=== PATIENT | female | born 1980 | race African-American/Black ===

== ENCOUNTER 2021-12-11 16:52 | Emergency (ER) | payer BC, MEDICAID, SELFPAY ==
[2021-12-11 17:02] VITALS: BP 134/88; PULSE 76; RESP 16; TEMP 36.7; O2SAT 99; BMI 32.5
[2021-12-11 17:05] VITALS: BP 120/95; PULSE 83; RESP 18; TEMP 36.5; O2SAT 100
--- NOTE | 2021-12-11 17:14 | XRR_ITS ---
PROCEDURE INFORMATION: Exam: XR Right Ankle Exam date and time: 12/11/2021 4:41 PM Age: 41 years old Clinical indication: Injury or trauma; Fall; Blunt trauma; Ankle; Right; Additional info: Fell and rolled ankle TECHNIQUE: Imaging protocol: XR Right ankle. Views: 3 or more views. COMPARISON: No relevant prior studies available. FINDINGS: Bones/joints: There is a mildly displaced oblique fracture through the lateral aspect of the base of the 5th metatarsal. Soft tissues: There is edema in the soft tissues. XR/XR ankle RT min 3V* [id number] IMPRESSION: 1. There is a mildly displaced oblique fracture through the lateral aspect of the base of the 5th metatarsal. 2. There is edema in the soft tissues.
--- NOTE | 2021-12-11 17:23 | XRR_ITS ---
PROCEDURE INFORMATION: Exam: XR Right Foot Exam date and time: 12/11/2021 4:41 PM Age: 41 years old Clinical indication: Injury or trauma; Fall; Blunt trauma; Foot; Right; Additional info: Injury with pain and swelling around lateral midfoot TECHNIQUE: Imaging protocol: XR Right foot. Views: 3 or more views. COMPARISON: No relevant prior studies available. FINDINGS: Bones/joints: There is a mildly displaced oblique fracture through the lateral aspect of the base of the 5th metatarsal. Hallux valgus. Soft tissues: There is edema in the soft tissues. XR/XR foot RT min 3V* [id number] IMPRESSION: There is a mildly displaced oblique fracture through the lateral aspect of the base of the 5th metatarsal.
--- NOTE | 2021-12-11 17:25 | W.ED.EXTPRO ---
HPI - Extremity Problem General: Chief complaint: Extremity Injury, Lower Stated complaint: Right foot injury Time Seen by Provider: 12/11/21 17:13 History of Present Illness: Patient is a 41-year-old female comes to the ED with right foot injury. Injury occurred just prior to arrival. Patient says she was walking off her porch steps and stepped on hose with right foot causing her to roll her ankle. She felt a pop. She endorses 9 out of 10 pain in her right foot and ankle with some swelling around her midfoot region. She has not taken anything for pain before coming to the ED. Associated symptoms: Deny chest pain, fever(s) or rash Review of Systems Const: Denies: fever(s), chills or fatigue Eyes: Denies: change in vision or eye discomfort ENMT: Denies: throat pain, odynophagia, nasal discharge or nasal congestion Card: Denies: chest pain, palpitations, edema, swelling of feet/ankles, dyspnea on exertion or orthopnea Resp: Denies: dyspnea, productive cough or non-productive cough GI: Denies: abdominal pain, nausea, vomiting, diarrhea, constipation or hematochezia : Denies: flank pain, dysuria or hematuria Musc: Reports: extremity pain (Right foot) and extremity swelling (Right foot); Denies: neck pain or back pain Skin/Breast: Denies: rash or new lesions Neuro: Denies: headache(s), numbness in extremities or weakness in extremities [facility] ED PFSH: Medical History No pertinent family history Surgical History No pertinent past surgical history Physical Exam Const: COMMON NORMALS: no acute distress, patient oriented x3 and alert GENERAL APPEARANCE: cooperative and comfortable HENMT: COMMON NORMALS: normocephalic HEAD & SCALP: normocephalic MOUTH: Normal oral and palatal mucosa present THROAT: posterior oropharynx normal and uvula midline Neck/C-Spine: COMMON NORMALS: supple GENERAL: Yes normal visual inspection Resp: COMMON NORMALS: normal respiratory effort, No retractions, No use of accessory muscles and clear to auscultation bilaterally AUSCULTATION: clear to auscultation bilaterally Cardio: COMMON NORMALS: regular rate, regular rhythm, S1 normal heart sound present, S2 normal heart sound present, No gallops present (Cardio), No clicks present (Cardio), No murmurs present (Cardio) and Peripheral pulses 2+ throughout RATE: regular rate RHYTHM: regular rhythm HEART SOUNDS: S1 normal heart sound present and S2 normal heart sound present PERIPHERAL PULSES: Peripheral pulses 2+ throughout GI: COMMON NORMALS: Normal to inspection, nondistended, normoactive bowel sounds present, Soft to palpation, non-tender and no masses PALPATION: Yes Soft to palpation : COMMON NORMALS: Yes no CVA tenderness BLADDER/KIDNEY EXAM: Yes no CVA tenderness Back/Pelvis: COMMON NORMALS: no CVA tenderness Extremity: NARRATIVE EXTREMITY EXAM: Right foot?midfoot swelling and ecchymosis noted. Tenderness over the lateral aspect of the midfoot. Neurovascular intact. Neuro: COMMON NORMALS: patient oriented x3 and moves all extremities SENSORIUM/ORIENTATION: Yes alert Skin: GENERAL SKIN EXAM: dry skin Course Vital Signs: Vital signs: Vital Signs Temperature 97.7 F 12/11/21 17:05 Pulse Rate 83 12/11/21 17:05 Respiratory Rate 18 12/11/21 17:05 Blood Pressure 120/95 12/11/21 17:05 Pulse Oximetry 100 12/11/21 17:05 MDM - Extremity (Nontraumatic) Medical Decision Making Patient is a 41-year-old female comes to the ED with right foot injury. She has some swelling and ecchymosis around the lateral midfoot region. Tenderness over lateral midfoot as well. Neurovascular tact. X-ray of right foot showed a mildly displaced oblique fracture through base of fifth metatarsal. Order was placed with case management for patient be referred to Dr. Gomez for follow-up. Patient was put in a short posterior leg splint and given some crutches. She was told to limit weightbearing and that case management will contact her in the next several days to set up an appointment with Dr. Gomez the emergency room clinician for further management of metatarsal fracture. Patient was discharged home with prescription for hydrocodone for pain. Return ED precautions given. Patient understood agree with plan. Lab Data Radiology Impressions Ankle X-Ray 12/11/21 17:14 IMPRESSION: 1. There is a mildly displaced oblique fracture through the lateral aspect of the base of the 5th metatarsal. 2. There is edema in the soft tissues. Foot X-Ray 12/11/21 17:23 IMPRESSION: There is a mildly displaced oblique fracture through the lateral aspect of the base of the 5th metatarsal. Discharge Plan Discharge Patient Disposition: Home Clinical Impression: Metatarsal bone fracture Qualifiers: Encounter type: initial encounter Metatarsal bone: fifth Fracture type: closed Fracture alignment: nondisplaced Laterality: right Qualified Code(s): S92.354A - Nondisplaced fracture of fifth metatarsal bone, right foot, initial encounter for closed fracture Condition: Stable Discharge Orders: Discharge ED (Routine); Ordered 12/11/21 Ordered By: Manuel Collins Referrals: Rocio Mckeon DO [Primary Care Provider] - Discharge Diet: Regular Discharge Activity: Use walker/crutches as instructed Patient Instructions: Fractures - Metatarsal, Foot Fracture in Adults (ED), Opioid Safety Activity Restrictions/Additional Instructions: Follow-up with medical provider as directed. Case management should be contacting you in the next several days to set up an appointment with Dr. Gomez the emergency room clinician for follow-up of foot fracture. Use crutches for ambulation and limit weightbearing until seen by Dr. Gomez. Take medications as prescribed. Return to the ER or your medical provider if condition worsens. Please read and understand discharge instructions. Thank you for choosing [facility] for your healthcare needs today. Please realize this is an emergency room and that we are providing you with a medical screening exam and this may not be complete and all inclusive of all the testing and or work up that you may need to determine your ailment or severity of your illness. It is very important that you follow up as instructed or that you return to the Emergency Department should you have concerns or if your condition changes or worsens in any way. 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
[2021-12-11] MEDS: HYDROcodone-acetaminophen 7.5-325 mg Tablet 1 TAB PO (17:35)
--- NOTE | 2021-12-12 10:41 | DCPLANNER ---
Addendum entered by Carlie Mcclure 01/11/22 15:30: Patient had a follow up appointment scheduled for 12.16.[address] Gomez at ortho - patient did attend appointment. Addendum entered by Carlie Mcclure 12/13/21 08:43: Patient has a follow up appointment scheduled for Thursday, December 16, 2021 at 2:[address] Gomez at ortho. Clinic will call patient with appointment information. Original Note: manager creative services had message to schedule a follow up appointment for patient with ortho. manager creative services called the ortho clinic, spoke with Xiomara, gave clinic patients information. manager creative services was told that patients information would be printed and reviewed. Clinic will call patient with appointment information.
== END 2021-12-11 18:47 | disposition home or self-care (01) ==
PROVIDERS: Emergency Provider Physician Assistant; PCP Family Medicine
DX: S92.354A Nondisplaced fracture of fifth metatarsal bone, right foot, initial encounter for closed fracture (principal); X50.1XXA Overexertion from prolonged static or awkward postures, initial encounter
CPT/HCPCS: 29515; 73610; 73630; 99283; E0114

== ENCOUNTER 2021-12-16 14:25 | Outpatient (CLI) | payer BC, MEDICAID, SELFPAY | END 2021-12-16 14:26 | disposition home or self-care (01) | LOC: SPT 14:26 | PROVIDERS: PCP Family Medicine; Visit Provider Podiatrist Foot & Ankle Surgery | DX: Z46.89 Encounter for fitting and adjustment of other specified devices (principal); S92.30 Fracture of unspecified metatarsal bone(s); X58.XXXD Exposure to other specified factors, subsequent encounter | CPT/HCPCS: 97760; L4361 ==

== ENCOUNTER → 2021-12-30 12:54 | Outpatient (BNVA) | payer BC, MEDICAID, SELFPAY | PROVIDERS: PCP Family Medicine; Visit Provider Podiatrist Foot & Ankle Surgery | DX: S92.354D Nondisplaced fracture of fifth metatarsal bone, right foot, subsequent encounter for fracture with routine healing (principal); X58.XXXD Exposure to other specified factors, subsequent encounter | CPT/HCPCS: 73630; 99214 ==

== ENCOUNTER → 2022-01-23 11:33 | Outpatient (BNVA) | payer BC, MEDICAID, SELFPAY | PROVIDERS: PCP Family Medicine; Visit Provider Podiatrist Foot & Ankle Surgery | DX: S92.354D Nondisplaced fracture of fifth metatarsal bone, right foot, subsequent encounter for fracture with routine healing (principal); W10.9XXA Fall (on) (from) unspecified stairs and steps, initial encounter; F17.210 Nicotine dependence, cigarettes, uncomplicated | CPT/HCPCS: 73630; 99213; 99214 ==

== ENCOUNTER → 2022-03-08 14:00 | Outpatient (BNVA) | payer BC, MEDICAID, SELFPAY | PROVIDERS: PCP Family Medicine; Visit Provider Podiatrist Foot & Ankle Surgery | DX: S92.354D Nondisplaced fracture of fifth metatarsal bone, right foot, subsequent encounter for fracture with routine healing (principal); W22.8XXD Striking against or struck by other objects, subsequent encounter | CPT/HCPCS: 73630; 99213; 99214 ==

== ENCOUNTER 2022-05-18 23:58 | Emergency (ER) | payer BC, MEDICAID, SELFPAY ==
--- NOTE | 2022-05-18 00:15 | ECG_ITS ---
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 Measurements Intervals [place] Rate: 81 P: 74 CT: 144 QRS: 79 QRSD: 92 T: 50 QT: 389 QTc: 454 Interpretive Statements SINUS RHYTHM Compared to ECG 04/11/2017 23:28:[address] interval no longer present Electronically Signed On 05-20-2022 9:26:47 CDT by Malvin Dao M.D. [email or web address]cho[facility] health centerCrowd Technologiesparkview [email or web address]/store/[id number]
[2022-05-19] VITALS: BP 119/74; PULSE 88; RESP 18; TEMP 36.5; O2SAT 97; BMI 36.7
[2022-05-19 00:04] VITALS: BP 120/80; PULSE 86; RESP 20; O2SAT 99
--- NOTE | 2022-05-19 00:08 | W.ED.ABDPA2 ---
HPI - Abdominal Pain General: Chief Complaint: Abdominal Pain Stated Complaint: abd pain Time Seen by Provider: 05/19/22 00:08 History of Present Illness: 42-year-old female comes in today with epigastric pain. Patient reports pain on and off for the last 2 to 3 months. Patient reports that the pain was worse tonight. Patient denies any nausea vomiting or fever. Patient reports no chest discomfort. Patient continues to have her gallbladder. Patient reports that her mother had her gallbladder out about 42 years of age. Patient denies any chronic medical conditions or abdominal surgeries. Patient takes no routine medications. Associated Symptoms: Reports nausea; Denies fever(s) Review of Systems Const: Denies: fever(s) Card: Denies: chest pain Resp: Denies: dyspnea GI: Reports: abdominal pain and nausea [facility] ED PFSH: Medical History No pertinent family history Surgical History No pertinent past surgical history Social History Smoking and tobacco status: current every day smoker Physical Exam Const: COMMON NORMALS: alert HENMT: COMMON NORMALS: normocephalic HEAD & SCALP: normocephalic Resp: COMMON NORMALS: normal respiratory effort and clear to auscultation bilaterally AUSCULTATION: clear to auscultation bilaterally Cardio: COMMON NORMALS: regular rate and regular rhythm RATE: regular rate RHYTHM: regular rhythm GI: COMMON NORMALS: Soft to palpation AUSCULTATION: Yes normoactive bowel sounds PALPATION: Yes Soft to palpation and Yes Tenderness to palpation present (GI) (Midepigastric) Extremity: COMMON NORMALS: normal to inspection Neuro: SENSORIUM/ORIENTATION: Yes alert Skin: COMMON NORMALS: no rashes or lesions noted GENERAL SKIN EXAM: no rashes or lesions noted Course ED course: 1248, patient reported decrease in her abdominal pain with relief after GI cocktail. Vital Signs: Vital signs: Vital Signs Temperature 97.7 F 05/19/22 00:00 Pulse Rate 84 05/19/22 00:34 Respiratory Rate 23 H 05/19/22 00:34 Blood Pressure 120/68 05/19/22 00:34 Pulse Oximetry 97 05/19/22 00:34 Oxygen Delivery Me thod 05/19/22 00:00 MDM - Abdominal Pain Medical Decision Making 42-year-old female comes in today with epigastric pain. On exam patient has some discomfort to the mid epigastrium. Abdomen soft. No CVA tenderness. Negative McBurney's negative Dobbs's. Differential diagnosis includes GERD, pancreatitis, cholecystitis. Laboratory values were unremarkable. Patient had relief with a GI cocktail. Recommend treatment for GERD with pantoprazole 40 mg daily for the next 90 days. Recommend follow-up with primary care for persistent or worsening symptoms return to the ER. Lab Data : 05/19/22 00:15 05/19/22 00:15 Labs/Radiology: Laboratory Results WBC 8.7 10^3/uL (4.0-10.0) 05/19/22 00:15 RBC 4.84 10^6/uL (4.1-5.3) 05/19/22 00:15 Hgb 13.1 g/dL (11.5-15.3) 05/19/22 00:15 Hct 41.9 % (37.0-47.0) 05/19/22 00:15 MCV 86.6 fl (81-99) 05/19/22 00:15 MCH 27.1 pg (28.0-34.0) L 05/19/22 00:15 MCHC 31.3 g/dL (30.0-36.0) 05/19/22 00:15 RDW 14.6 % (12.1-15.1) 05/19/22 00:15 Plt Count 271 10^3/cmm (130-400) 05/19/22 00:15 MPV 11.0 fL (7.4-10.4) H 05/19/22 00:15 Neut % (Auto) 60.8 % 05/19/22 00:15 Lymph % (Auto) 31.0 % 05/19/22 00:15 Lawrence % (Auto) 5.0 % 05/19/22 00:15 Eos % (Auto) 2.7 % 05/19/22 00:15 Baso % (Auto) 0.3 % 05/19/22 00:15 Neut # (Auto) 5.30 10^3/uL (1.8-7.7) 05/19/22 00:15 Lymph # (Auto) 2.7 10^3/uL (0.8-4.8) 05/19/22 00:15 Lawrence # (Auto) 0.4 10^3/uL (0.2-0.9) 05/19/22 00:15 Eos # (Auto) 0.2 10^3/uL (0.0-0.8) 05/19/22 00:15 Baso # (Auto) 0.0 10^3/uL (0.0-0.1) 05/19/22 00:15 Nucleated RBC % (auto) 0 % 05/19/22 00:15 Nucleated RBCs # 0.0 /100WBC 05/19/22 00:15 Sodium 140 mmol/L (136-145) 05/19/22 00:15 Potassium 3.6 mmol/L (3.5-5.1) 05/19/22 00:15 Chloride 104 mmol/L (98-107) 05/19/22 00:15 Carbon Dioxide 24 mmol/L (22-29) 05/19/22 00:15 Anion Gap 15.6 (5-19) 05/19/22 00:15 BUN 11 mg/dL (6-20) 05/19/22 00:15 Creatinine 0.7 mg/dL (0.5-0.9) 05/19/22 00:15 GFR Calculation 111.6 mL/min (90-130) 05/19/22 00:15 Glucose 150 mg/dL (65-115) H 05/19/22 00:15 Calculated Osmolality 292 mOsm/kg (285-295) 05/19/22 00:15 Calcium 9.2 mg/dL (8.5-10.5) 05/19/22 00:15 Total Bilirubin 0.2 mg/dL (0.15-1.2) 05/19/22 00:15 AST 52 U/L (0-32) H 05/19/22 00:15 ALT 28 U/L (0-33) 05/19/22 00:15 Alkaline Phosphatase 125 U/L (35-105) H 05/19/22 00:15 Total Protein 7.1 g/dL (6.6-8.7) 05/19/22 00:15 Albumin 4.2 g/dL (3.5-5.2) 05/19/22 00:15 Globulin 2.9 g/dL (1.3-4.6) 05/19/22 00:15 Lipase 53 U/L (13-60) 05/19/22 00:15 EKG Data EKG 1: EKG interpretation date: 05/19/22 EKG interpretation time: 00:15 Prior EKG tracings: not available for review Interpretation: EKG shows a sinus rhythm with regular rate at [address] elevation or ectopy is noted. No prior exam was available for comparison. Discharge Plan Discharge Patient Disposition: Home Clinical Impression: GERD (gastroesophageal reflux disease) Qualifiers: Esophagitis presence: esophagitis presence not specified Qualified Code(s): K21.9 - Gastro-esophageal reflux disease without esophagitis Condition: Stable Prescriptions: New pantoprazole 40 mg tablet,delayed release (DR/EC) 40 mg PO DAILY Qty: 30 2RF No Action hydrocodone-acetaminophen 5-325 mg tablet PO (DME) cam boot See Rx Instructions .Route .MEDSUPPLY Qty: 1 0RF Rx Instructions: As directed hydrocodone-acetaminophen 5-325 mg tablet 1 tab PO Q6H PRN (Reason: pain) 7 Days Qty: 28 0RF hydrocodone-acetaminophen 5-325 mg tablet 1 tab PO Q6H PRN (Reason: pain) 7 Days Qty: 20 0RF Discharge Orders: Discharge ED (Routine); Ordered 05/19/22 Ordered By: Diony Lassiter Referrals: Rocio Mckeon DO [Primary Care Provider] - Discharge Diet: As Directed Discharge Activity: Increase activity as tolerated Patient Instructions: Diet for Stomach Ulcers and Gastritis (ED), GERD (Gastroesophageal Reflux Disease) (ED) Activity Restrictions/Additional Instructions: Smoking cessation can decrease stomach acid production and reflux. Avoid eating 2 hours before bedtime because lying down too early after eating may cause acid to go up into the esophagus. Carbonated beverages often relax the sphincter muscle of the lower esophagus causing acid to go up into the higher part of the esophagus causing more pain. Some foods may also causes for laxation of the sphincter muscle causing more discomfort such as chocolate, caffeine, onions. Not everybody reacts the same way with these foods but you may find this helpful. It is recommended to use pantoprazole or other similar medications for up to 90 days to allow for the healing of the esophagus and stomach tissue. It is important to take this medication 30 minutes before your first meal of the day. Follow-up with primary care for further evaluation and treatment. Return to ER for new concerns such as high fever, uncontrolled pain, or blood in vomit or stool. 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
[2022-05-19] MEDS: lidocaine 2% viscous 15 ML, aluminum-mag hydrox-simethicon 30 ML, sucralfate oral liq 1 GM PO (00:18)
[2022-05-19 00:31] LABS: Basophils % 0.3 %; Eosinophils # 0.2 10^3/uL (0.0-0.8); Eosinophils % 2.7 %; Hematocrit 41.9 % (37.0-47.0); Hemoglobin 13.1 g/dL (11.5-15.3); Lymphocytes # 2.7 10^3/uL (0.8-4.8); Mean Corpuscular HGB Conc 31.3 g/dL (30.0-36.0); Mean Corpuscular Hemoglobin 27.1 pg (28.0-34.0); Mean Corpuscular Volume 86.6 fl (81-99); Monocytes # 0.4 10^3/uL (0.2-0.9); Neutrophils % 60.8 %; Nucleated Red Blood Cells % 0 %; Platelet Count 271 10^3/cmm (130-400); Red Blood Count 4.84 10^6/uL (4.1-5.3); Red Cell Distribution Width 14.6 % (12.1-15.1); White Blood Count 8.7 10^3/uL (4.0-10.0)
[2022-05-19 00:34] VITALS: BP 120/68; PULSE 84; RESP 23; O2SAT 97
[2022-05-19 00:48] LABS: Alanine Aminotransferase 28 U/L (0-33); Albumin Level 4.2 g/dL (3.5-5.2); Alkaline Phosphatase 125 U/L (35-105); Anion Gap 15.6 (5-19); Aspartate Amino Transferase 52 U/L (0-32); Blood Urea Nitrogen 11 mg/dL (6-20); Calcium 9.2 mg/dL (8.5-10.5); Carbon Dioxide 24 mmol/L (22-29); Chloride 104 mmol/L (98-107); Globulin 2.9 g/dL (1.3-4.6); Glomerular Filtration Rate 111.6 mL/min (90-130); Glucose 150 mg/dL (65-115); Lipase 53 U/L (13-60); Osmolality Calculated 292 mOsm/kg (285-295); Potassium 3.6 mmol/L (3.5-5.1); Sodium 140 mmol/L (136-145); Total Bilirubin 0.2 mg/dL (0.15-1.2); Total Protein 7.1 g/dL (6.6-8.7)
[2022-05-19] MEDS: pantoprazole 40 mg SDV IVP (00:53)
[2022-05-19 01:02] VITALS: BP 119/67; PULSE 89; RESP 18; O2SAT 95
== END 2022-05-19 01:05 | disposition home or self-care (01) ==
PROVIDERS: Emergency Provider Nurse Practitioner Family; PCP Family Medicine
DX: K21.9 Gastro-esophageal reflux disease without esophagitis (principal)
CPT/HCPCS: 80053; 83690; 85025; 93005; 96374; 99284; C9113

== ENCOUNTER 2022-10-09 09:50 | Emergency (ER) | payer BC, MEDICAID, SELFPAY ==
[2022-10-09 10:02] VITALS: BP 132/87; PULSE 71; RESP 16; TEMP 36.6; O2SAT 99; BMI 36.0
--- NOTE | 2022-10-09 10:07 | W.ED.CHESTPA ---
HPI - Chest Pain General: Chief Complaint: Chest Pain Stated Complaint: Chest Pain Time Seen by Provider: 10/09/22 10:01 [facility] ED PFSH: Medical History No pertinent family history Surgical History No pertinent past surgical history Social History Smoking and tobacco status: current every day smoker Course Vital Signs: Vital signs: Vital Signs Temperature 97.8 F 10/09/22 10:02 Pulse Rate 71 10/09/22 10:02 Respiratory Rate 16 10/09/22 10:02 Blood Pressure 132/87 10/09/22 10:02 Pulse Oximetry 99 10/09/22 10:02 Oxygen Delivery Me thod 10/09/22 10:02 Discharge Plan Discharge Condition: Stable Prescriptions: No Action hydrocodone-acetaminophen 5-325 mg tablet PO (DME) cam boot See Rx Instructions .Route .MEDSUPPLY Qty: 1 0RF Rx Instructions: As directed hydrocodone-acetaminophen 5-325 mg tablet 1 tab PO Q6H PRN (Reason: pain) 7 Days Qty: 28 0RF hydrocodone-acetaminophen 5-325 mg tablet 1 tab PO Q6H PRN (Reason: pain) 7 Days Qty: 20 0RF pantoprazole 40 mg tablet,delayed release (DR/EC) 40 mg PO DAILY Qty: 30 2RF Referrals: Rocio Mckeon DO [Primary Care Provider] - Coding Level of Care Code 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
--- NOTE | 2022-10-09 10:12 | XR_ITS ---
WS: [id number] Portable AP upright chest, 10/09/2022 Clinical Data: chest pain Comparison: Two-view chest, 04/20/2009. Findings: No nodules, masses or effusions are seen. The heart is normal. The pulmonary vascularity is not increased. No pneumonia or pneumothorax is seen. XR/XR chest 1V portable [id number] Impression: Negative chest.
--- NOTE | 2022-10-09 10:12 | ECG_ITS ---
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 Measurements Intervals [place] Rate: 66 P: 65 RI: 140 QRS: 68 QRSD: 84 T: 49 QT: 388 QTc: 409 Interpretive Statements SINUS RHYTHM Compared to ECG 05/19/2022 00:10:03 No significant changes Electronically Signed On 10-09-2022 10:33:17 WOOD FINISHER APPRENTICE by Juan Manuel Oliveros M.D. [email or web address] [email or web address] Data Center Solutionsst[email or web address]/store/[id number]
--- NOTE | 2022-10-09 10:17 | US_ITS ---
WS: [id number] RIGHT UPPER QUADRANT ULTRASOUND HISTORY: RUQ pain COMPARISON: None available. Liver: 16.0 cm in length. Normal size liver. No bile duct dilatation or mass. Portal Vein: Normal hepatopetal flow with monophasic waveform. Gallbladder: Normally distended gallbladder. There is a large stone measuring 2.2 x 1.6 cm near the g allbladder neck. No adjacent inflammation. CBD: 0.3 cm Pancreas: Normal size and echogenicity. Right kidney: 10.8 cm in length. Normal size and echogenicity. No hydronephrosis or mass. Aorta and IVC: Unremarkable abdominal aorta and IVC. No ascites. US/US gall bladder [id number] IMPRESSION: 1. Cholelithiasis without evidence for acute cholecystitis at this time. 2. No bile duct dilatation.
--- NOTE | 2022-10-09 10:18 | W.ED.ABDPA2 ---
Documented by User: ADITHYA Paige 10/09/22 11:32 HPI - Abdominal Pain General: Chief Complaint: Chest Pain Stated Complaint: Chest Pain Time Seen by Provider: 10/09/22 10:01 Source: patient Mode of arrival: ambulatory Limitations: no limitations History of Present Illness: Patient is a 42-year-old female with no known past medical history here for complaints of epigastric pain that began at roughly 5 AM this morning when it awoke her from sleep. She feels like pain is radiating into the left upper/left side of her chest. Pain has been constant since onset. Patient states she had one previous episode a few months ago that went away on its own after 30 minutes or so. She was told this was secondary to indigestion however patient questions this diagnosis. Patient denies nausea, vomiting, diarrhea. She does not complain of shortness of breath or difficulty breathing. No lightheadedness or palpitations. MD elicited complaint: abdominal pain Pertinent past history: none Onset (ago): hour(s) Pain Consistency: constant Location: Epigastric Severity: moderate Quality: sharp Radiation: LUQ Migration to: no migration Exacerbating factors: movement and other (lying down, sitting forward) Relieving factors: other (curling into a ball and putting pressure on it ) Associated Symptoms: Reports no associated symptoms; Denies change in bowel habits, chills, diarrhea, dysuria, fever(s), nausea, syncope and vomiting Review of Systems Const: Denies: fever(s), chills, body aches, fatigue or malaise Card: Reports: chest pain; Denies: palpitations, irregular heart rhythm, edema, swelling of feet/ankles, lightheadedness, syncope, pre-syncope, dyspnea on exertion or orthopnea Resp: Denies: dyspnea, productive cough, non-productive cough, wheezing, hemoptysis or chest congestion GI: Reports: abdominal pain; Denies: nausea, vomiting, diarrhea or change in bowel habits : Denies: flank pain or dysuria Musc: Denies: neck pain, back pain, extremity pain or joint pain Skin/Breast: Denies: rash Neuro: Denies: headache(s), numbness in extremities, weakness in extremities, sensory changes or dizziness PFS ED PFSH: Medical History (Updated 10/17/22 @ 10:53 by Ruben Abreu DO) No pertinent family history Symptomatic cholelithiasis Surgical History History of 2 No pertinent past surgical history Social History Smoking and tobacco status: current every day smoker Physical Exam Const: COMMON NORMALS: no acute distress, patient oriented x3, no limitations and alert GENERAL APPEARANCE: cooperative NUTRITIONAL APPEARANCE: obese ORIENTATION/CONSCIOUSNESS: Yes awake, Yes oriented to person, Yes oriented to place and Yes oriented to time HENMT: COMMON NORMALS: normocephalic and atraumatic HEAD & SCALP: normocephalic and atraumatic Chest: COMMONS NORMALS: normal inspection of the chest and normal palpation of entire chest wall Resp: COMMON NORMALS: normal respiratory effort and clear to auscultation bilaterally AUSCULTATION: clear to auscultation bilaterally Cardio: COMMON NORMALS: regular rate and regular rhythm RATE: regular rate RHYTHM: regular rhythm GI: COMMON NORMALS: Normal to inspection, nondistended, normoactive bowel sounds present, Soft to palpation, No hepatosplenomegaly present and no masses INSPECTION: Yes normal to inspection AUSCULTATION: Yes normoactive bowel sounds PALPATION: Yes Soft to palpation, Yes Tenderness to palpation present (GI) (max tendernes to RUQ; tenderness to epigastric and LUQ), No Guarding due to palpation present (GI), No Rigid due to palpation and Yes No hepatosplenomegaly present : COMMON NORMALS: Yes no CVA tenderness BLADDER/KIDNEY EXAM: Yes no CVA tenderness Back/Pelvis: COMMON NORMALS: no CVA tenderness Extremity: COMMON NORMALS: normal to inspection GENERAL: Yes normal exam except as noted Neuro: ALEX COMA SCALE: document GCS findings Alex coma scale eye opening: Spontaneous Alex coma scale verbal response: Orientated [place] coma scale motor response: Obey commands Alex coma scale total score: 15 COMMON NORMALS: patient oriented x3 SENSORIUM/ORIENTATION: Yes alert, Yes oriented to person, Yes oriented to place and Yes oriented to time Skin: COMMON NORMALS: no rashes or lesions noted GENERAL SKIN EXAM: no rashes or lesions noted Course Vital Signs: Vital signs: Vital Signs Temperature 97.8 F 10/09/22 11:34 Pulse Rate 68 10/09/22 11:34 Respiratory Rate 17 10/09/22 11:34 Blood Pressure 121/80 10/09/22 11:34 Pulse Oximetry 99 10/09/22 11:34 Oxygen Delivery Me thod 10/09/22 10:43 MDM - Abdominal Pain Medical Decision Making Patient here with right upper quadrant and epigastric pain. Upon re-assessment pain has improved. Patient's vital signs are stable. She has a normal white count. Remainder of labs including her LFTs are normal. Gallbladder ultrasound showing cholelithiasis without evidence for acute cholecystitis. She did have a gallstone near the neck of her gallbladder. This most likely is the culprit of patient's symptoms. She will be placed on pain and nausea medications and case management will get her set up with general surgery for evaluation for elective cholecystectomy. Strict return ED precautions given. Lab Data 10/09/22 10:15 10/09/22 10:15 Labs/Radiology: Radiology Impressions Chest X-Ray 10/09/22 10:12 Impression: Negative chest. Gallbladder Ultrasound 10/09/22 10:17 IMPRESSION: 1. Cholelithiasis without evidence for acute cholecystitis at this time. 2. No bile duct dilatation. Laboratory Results WBC 9.0 10^3/uL (4.0-10.0) 10/09/22 10:15 RBC 4.92 10^6/uL (4.1-5.3) 10/09/22 10:15 Hgb 12.9 g/dL (11.5-15.3) 10/09/22 10:15 Hct 41.4 % (37.0-47.0) 10/09/22 10:15 MCV 84.1 fl (81-99) 10/09/22 10:15 MCH 26.2 pg (28.0-34.0) L 10/09/22 10:15 MCHC 31.2 g/dL (30.0-36.0) 10/09/22 10:15 RDW 15.4 % (12.1-15.1) H 10/09/22 10:15 Plt Count 241 10^3/cmm (130-400) 10/09/22 10:15 MPV 10.6 fL (7.4-10.4) H 10/09/22 10:15 Neut % (Auto) 73.7 % 10/09/22 10:15 Lymph % (Auto) 20.2 % 10/09/22 10:15 [place] % (Auto) 4.3 % 10/09/22 10:15 Eos % (Auto) 1.3 % 10/09/22 10:15 Baso % (Auto) 0.3 % 10/09/22 10:15 Neut # (Auto) 6.65 10^3/uL (1.8-7.7) 10/09/22 10:15 Lymph # (Auto) 1.8 10^3/uL (0.8-4.8) 10/09/22 10:15 [place] # (Auto) 0.4 10^3/uL (0.2-0.9) 10/09/22 10:15 Eos # (Auto) 0.1 10^3/uL (0.0-0.8) 10/09/22 10:15 Baso # (Auto) 0.0 10^3/uL (0.0-0.1) 10/09/22 10:15 Nucleated RBC % (auto) 0 % 10/09/22 10:15 Nucleated RBCs # 0.0 /100WBC 10/09/22 10:15 Sodium 135 mmol/L (136-145) L 10/09/22 10:15 Potassium 4.3 mmol/L (3.5-5.1) 10/09/22 10:15 Chloride 102 mmol/L (98-107) 10/09/22 10:15 Carbon Dioxide 24 mmol/L (22-29) 10/09/22 10:15 Anion Gap 13.3 (5-19) 10/09/22 10:15 BUN 12 mg/dL (6-20) 10/09/22 10:15 Creatinine 0.7 mg/dL (0.5-0.9) 10/09/22 10:15 GFR Calculation 111.6 mL/min (90-130) 10/09/22 10:15 Glucose 118 mg/dL (65-115) H 10/09/22 10:15 Calculated Osmolality 281 mOsm/kg (285-295) L 10/09/22 10:15 Calcium 9.4 mg/dL (8.5-10.5) 10/09/22 10:15 Total Bilirubin 0.2 mg/dL (0.15-1.2) 10/09/22 10:15 AST 15 U/L (0-32) 10/09/22 10:15 ALT 17 U/L (0-33) 10/09/22 10:15 Alkaline Phosphatase 90 U/L (35-105) 10/09/22 10:15 Troponin T Baseline 6 ng/L (0-10) 10/09/22 10:15 Total Protein 7.4 g/dL (6.6-8.7) 10/09/22 10:15 Albumin 4.1 g/dL (3.5-5.2) 10/09/22 10:15 Globulin 3.3 g/dL (1.3-4.6) 10/09/22 10:15 Lipase 41 U/L (13-60) 10/09/22 10:15 Discharge Plan Discharge Patient Disposition: Home Clinical Impression: Cholelithiasis Condition: Stable Prescriptions: New hydrocodone-acetaminophen 5-325 mg tablet 1 tab PO Q6H PRN (Reason: pain) Qty: 14 0RF ondansetron 4 mg tablet,disintegrating 4 mg PO Q8H PRN (Reason: nausea and vomiting) Qty: 14 0RF Discharge Orders: Discharge ED (Routine); Ordered 10/09/22 Ordered By: Zonia Overton Referrals: Rocio Mckeon DO [Primary Care Provider] - Patient Instructions: Cholelithiasis, Gallstones (ED), Opioid Safety, Pain Management Activity Restrictions/Additional Instructions: As we discussed case management will get you set up with general surgery for evaluation of your pain and gallstones. You need to return to the emergency department for worsening or uncontrollable pain, repetitive episodes of vomiting, fevers, yellowing of your skin or eyes, or any other concerns you may have. Coding Level of Care Code ED Orthophotography Technician for [facility]g F[facility] Exam Comprehensive Documented by User: Meño Lopes DO 10/19/22 06:12 HPI - Abdominal Pain General: Chief Complaint: Chest Pain Stated Complaint: Chest Pain Time Seen by Provider: 10/09/22 10:01 [facility] ED PFS: Medical History (Updated 10/17/22 @ 10:53 by Ruben Abreu DO) No pertinent family history Symptomatic cholelithiasis Surgical History History of 2 No pertinent past surgical history Social History Smoking and tobacco status: current every day smoker Physical Exam Neuro: ALEX COMA SCALE: document GCS findings Alex coma scale total score: 15 Course Vital Signs: Vital signs: Vital Signs Temperature 97.8 F 10/09/22 11:34 Pulse Rate 68 10/09/22 11:34 Respiratory Rate 17 10/09/22 11:34 Blood Pressure 121/80 10/09/22 11:34 Pulse Oximetry 99 10/09/22 11:34 Oxygen Delivery Me thod 10/09/22 10:43 MDM - Abdominal Pain Medical Decision Making Patient here with right upper quadrant and epigastric pain. Upon re-assessment pain has improved. Patient's vital signs are stable. She has a normal white count. Remainder of labs including her LFTs are normal. Gallbladder ultrasound showing cholelithiasis without evidence for acute cholecystitis. She did have a gallstone near the neck of her gallbladder. This most likely is the culprit of patient's symptoms. She will be placed on pain and nausea medications and case management will get her set up with general surgery for evaluation for elective cholecystectomy. Strict return ED precautions given. Chart reviewed and patient discussed with midlevel. Agree with assessment and plan. Lab Data 10/09/22 10:15 10/09/22 10:15 Labs/Radiology: Radiology Impressions Chest X-Ray 10/09/22 10:12 Impression: Negative chest. Gallbladder Ultrasound 10/09/22 10:17 IMPRESSION: 1. Cholelithiasis without evidence for acute cholecystitis at this time. 2. No bile duct dilatation. Laboratory Results WBC 9.0 10^3/uL (4.0-10.0) 10/09/22 10:15 RBC 4.92 10^6/uL (4.1-5.3) 10/09/22 10:15 Hgb 12.9 g/dL (11.5-15.3) 10/09/22 10:15 Hct 41.4 % (37.0-47.0) 10/09/22 10:15 MCV 84.1 fl (81-99) 10/09/22 10:15 MCH 26.2 pg (28.0-34.0) L 10/09/22 10:15 MCHC 31.2 g/dL (30.0-36.0) 10/09/22 10:15 RDW 15.4 % (12.1-15.1) H 10/09/22 10:15 Plt Count 241 10^3/cmm (130-400) 10/09/22 10:15 MPV 10.6 fL (7.4-10.4) H 10/09/22 10:15 Neut % (Auto) 73.7 % 10/09/22 10:15 Lymph % (Auto) 20.2 % 10/09/22 10:15 [place] % (Auto) 4.3 % 10/09/22 10:15 Eos % (Auto) 1.3 % 10/09/22 10:15 Baso % (Auto) 0.3 % 10/09/22 10:15 Neut # (Auto) 6.65 10^3/uL (1.8-7.7) 10/09/22 10:15 Lymph # (Auto) 1.8 10^3/uL (0.8-4.8) 10/09/22 10:15 [place] # (Auto) 0.4 10^3/uL (0.2-0.9) 10/09/22 10:15 Eos # (Auto) 0.1 10^3/uL (0.0-0.8) 10/09/22 10:15 Baso # (Auto) 0.0 10^3/uL (0.0-0.1) 10/09/22 10:15 Nucleated RBC % (auto) 0 % 10/09/22 10:15 Nucleated RBCs # 0.0 /100WBC 10/09/22 10:15 Sodium 135 mmol/L (136-145) L 10/09/22 10:15 Potassium 4.3 mmol/L (3.5-5.1) 10/09/22 10:15 Chloride 102 mmol/L (98-107) 10/09/22 10:15 Carbon Dioxide 24 mmol/L (22-29) 10/09/22 10:15 Anion Gap 13.3 (5-19) 10/09/22 10:15 BUN 12 mg/dL (6-20) 10/09/22 10:15 Creatinine 0.7 mg/dL (0.5-0.9) 10/09/22 10:15 GFR Calculation 111.6 mL/min (90-130) 10/09/22 10:15 Glucose 118 mg/dL (65-115) H 10/09/22 10:15 Calculated Osmolality 281 mOsm/kg (285-295) L 10/09/22 10:15 Calcium 9.4 mg/dL (8.5-10.5) 10/09/22 10:15 Total Bilirubin 0.2 mg/dL (0.15-1.2) 10/09/22 10:15 AST 15 U/L (0-32) 10/09/22 10:15 ALT 17 U/L (0-33) 10/09/22 10:15 Alkaline Phosphatase 90 U/L (35-105) 10/09/22 10:15 Troponin T Baseline 6 ng/L (0-10) 10/09/22 10:15 Total Protein 7.4 g/dL (6.6-8.7) 10/09/22 10:15 Albumin 4.1 g/dL (3.5-5.2) 10/09/22 10:15 Globulin 3.3 g/dL (1.3-4.6) 10/09/22 10:15 Lipase 41 U/L (13-60) 10/09/22 10:15 Discharge Plan Discharge Patient Disposition: Home Clinical Impression: Cholelithiasis Condition: Stable Prescriptions: New hydrocodone-acetaminophen 5-325 mg tablet 1 tab PO Q6H PRN (Reason: pain) Qty: 14 0RF ondansetron 4 mg tablet,disintegrating 4 mg PO Q8H PRN (Reason: nausea and vomiting) Qty: 14 0RF Discharge Orders: Discharge ED (Routine); Ordered 10/09/22 Ordered By: Zonia Overton Referrals: Rocio Mckeon DO [Primary Care Provider] - Patient Instructions: Cholelithiasis, Gallstones (ED), Opioid Safety, Pain Management Activity Restrictions/Additional Instructions: As we discussed case management will get you set up with general surgery for evaluation of your pain and gallstones. You need to return to the emergency department for worsening or uncontrollable pain, repetitive episodes of vomiting, fevers, yellowing of your skin or eyes, or any other concerns you may have. Coding Level of Care Code ED Orthophotography Technician for [place] Exam Comprehensive
[2022-10-09] MEDS: lidocaine 2% viscous 15 ML, aluminum-mag hydrox-simethicon 30 ML, sucralfate oral liq 1 GM PO (10:25)
[2022-10-09 10:43] VITALS: BP 132/87; PULSE 71; RESP 16; TEMP 36.6; O2SAT 99
[2022-10-09 10:44] LABS: Basophils % 0.3 %; Eosinophils # 0.1 10^3/uL (0.0-0.8); Eosinophils % 1.3 %; Hematocrit 41.4 % (37.0-47.0); Hemoglobin 12.9 g/dL (11.5-15.3); Lymphocytes # 1.8 10^3/uL (0.8-4.8); Lymphocytes % 20.2 %; Mean Corpuscular HGB Conc 31.2 g/dL (30.0-36.0); Mean Corpuscular Hemoglobin 26.2 pg (28.0-34.0); Mean Corpuscular Volume 84.1 fl (81-99); Mean Platelet Volume 10.6 fL (7.4-10.4); Monocytes # 0.4 10^3/uL (0.2-0.9); Monocytes % 4.3 %; Neutrophils # 6.65 10^3/uL (1.8-7.7); Neutrophils % 73.7 %; Nucleated Red Blood Cells % 0 %; Platelet Count 241 10^3/cmm (130-400); Red Blood Count 4.92 10^6/uL (4.1-5.3); Red Cell Distribution Width 15.4 % (12.1-15.1)
[2022-10-09 11:07] LABS: Troponin(5th) Baseline 6 ng/L (0-10)
[2022-10-09 11:08] LABS: Alanine Aminotransferase 17 U/L (0-33); Albumin Level 4.1 g/dL (3.5-5.2); Alkaline Phosphatase 90 U/L (35-105); Anion Gap 13.3 (5-19); Aspartate Amino Transferase 15 U/L (0-32); Blood Urea Nitrogen 12 mg/dL (6-20); Calcium 9.4 mg/dL (8.5-10.5); Carbon Dioxide 24 mmol/L (22-29); Chloride 102 mmol/L (98-107); Creatinine Clr Calc Pharmacy 118.4137; Globulin 3.3 g/dL (1.3-4.6); Glomerular Filtration Rate 111.6 mL/min (90-130); Glucose 118 mg/dL (65-115); Lipase 41 U/L (13-60); Osmolality Calculated 281 mOsm/kg (285-295); Potassium 4.3 mmol/L (3.5-5.1); Sodium 135 mmol/L (136-145); Total Bilirubin 0.2 mg/dL (0.15-1.2); Total Protein 7.4 g/dL (6.6-8.7)
[2022-10-09 11:34] VITALS: BP 121/80; PULSE 68; RESP 17; TEMP 36.6; O2SAT 99
--- NOTE | 2022-10-09 11:36 | DCPLANNER ---
Addendum entered by Carlie Mcclure 10/27/22 13:30: Patient has a follow up appointment scheduled with general surgery - patient did attend appointment. Addendum entered by Carlie Mcclure 10/11/22 14:51: Patient has a follow up appointment scheduled for Monday, October 17, 2022 at 3:[address] Abreu at general surgery. Clinic will call patient with appointment information. Original Note: foundry manager had message to schedule a follow up appointment for patient with general surgery. foundry manager sent patients information to the front office staff at general surgery. Patients information will be printed and reviewed. Clinic will call patient with appointment information.
== END 2022-10-09 11:35 | disposition home or self-care (01) ==
PROVIDERS: Emergency Provider Physician Assistant; PCP Family Medicine
DX: K80.20 Calculus of gallbladder without cholecystitis without obstruction (principal); F17.210 Nicotine dependence, cigarettes, uncomplicated
CPT/HCPCS: 71045; 76705; 80053; 83690; 84484; 85025; 93005; 99285

== ENCOUNTER 2022-11-13 09:07 | Day surgery (SDC) | payer BC, MEDICAID, SELFPAY ==
[2022-11-10 08:15] VITALS: BMI 36.7
[2022-11-13] VITALS (9 sets, daily range): BP systolic 110–137; BP diastolic 80–98; PULSE 72–100; RESP 14–19; TEMP 36.1–37.2; O2SAT 98–100
[2022-11-13] MEDS: sodium chloride 0.9% 1,000 ML 30 ML IV (09:37)
[2022-11-13 09:47] LABS: OR HCG Qualitative Urine Negative (Negative)
--- NOTE | 2022-11-13 10:02 | ANES.PREANE2 ---
Pre-Anesthetic Assessment Height/Weight: Height 1.63 m Weight 97.069 kg Temp Pulse Resp BP Pulse Ox O2 Del Method 97 F L 88 18 114/84 98 11/13/22 09:26 11/13/22 09:26 11/13/22 09:26 11/13/22 09:26 11/13/22 09:26 11/13/22 09:31 Preop Diagnosis: Symptomatic cholelithiasis Operation Date: 11/13/22 08:30 Proposed Procedures p lap rere [id number], K80.20(Not Applicable) - Ruben Abreu DO Familial anesthetic complications: None Was Beta Ollie taken within 24 hours: N/A Was Clonidine taken within 24 hours: N/A Last intake: Intake Last Liquid Date 11/12/22 Last Liquid Time 17:00 Last Solid Date 11/12/22 Last Solid Time 17:00 Social Tobacco and No alcohol Exam alert, oriented x 3, clear to auscultation bilaterally and regular rate & rhythm Airway Mallampati: Class III Dentition: loose (Bottom front) Metabolic Morbid Obesity Anesthetic Plan ASA status: 2 Anesthesia: General Risk of > 500 ml blood loss (7ml/kg in children): No Medications/Allergies Home Medications Medication Instructions Recorded Confirmed Last Taken Type ondansetron 4 mg disintegrating 4 mg PO Q8H PRN nausea and 10/09/22 11/13/22 Unknown Rx tablet vomiting #14 tabs Allergies Allergy/AdvReac Type Severity Reaction Status Date / Time No Known Allergies Allergy Verified 10/17/22 10:09 Current Medications Generic Name Dose Route Start Last Admin Trade Name Freq PRN Reason Stop Dose Admin Sodium Chloride 1,000 mls @ 30 mls/hr 11/13/22 09:15 11/13/22 09:37 Sodium Chloride 0.9% IV 11/14/22 09:14 30 mls/hr .Q24H BUD Administration PFSH Anesthesia Medical History (Updated 10/17/22 @ 10:53 by Ruben Abreu DO) No pertinent family history Symptomatic cholelithiasis Surgical History History of 2 No pertinent past surgical history Social History Smoking and tobacco status: current every day smoker Female Reproductive History Date of last menstrual period: 10/18/22 Data Anesthesia Cardiac Studies: No Data to Display
--- NOTE | 2022-11-13 10:28 | W.PM.OPSUD ---
Surgery/Procedure H&P Update DATE OF PROCEDURE: November 13, 2022 DATE H&P PERFORMED: 10/17/22 H&P UPDATE INFORMATION: I have reviewed H&P completed within last 30 days, I have examined patient prior to procedure and No changes to prior documentation PREOP DIAGNOSIS: Symptomatic cholelithiasis PLANNED PROCEDURE: Operation Date: 11/13/22 08:30 Proposed Procedures p lap rere [id number], K80.20(Not Applicable) - Ruben Abreu DO
[2022-11-13] MEDS: ceFAZolin 2,000 MG in sodium chloride 0.9% (plus) 50 ML 100 MG IV (10:50)
[2022-11-13] MEDS: lidocaine-epi 2% 20 mL INJ 10 ML INJECTION (11:27)
--- NOTE | 2022-11-13 11:28 | PM.OP ---
Operative Report Date of procedure: November 13, 2022 Pre-op diagnosis: Preop Diagnosis Symptomatic cholelithiasis Post-op diagnosis: same Procedure done: Laparoscopic cholecystectomy Implants: None Specimens removed/disposition: Gallbladder Surgeon: Dr. Ruben Abreu DO Anesthesia: General Estimated blood loss (mL): 5 Complications: None apparent Brief History: This is a very pleasant 42-year-old female who was found to have symptomatic cholelithiasis. Laparoscopic cholecystectomy was indicated. The risk and benefits were explained and documented. Procedure: INDICATIONS FOR PROCEDURE: Patient is a Laparoscopic cholecystectomy was indicated the risks and benefits of the procedure including, but not limited to, bleeding, infection, damage to surrounding structures, damage to the common bile duct, bile leak, pain, scar, numbness, possibility of it converting to an open procedure were explained to the patient. He is understanding of the risks and wished to proceed. DESCRIPTION OF PROCEDURE: Patient was wheeled into the operative room and placed on the OR table in a supine position. Abdomen was inspected prepped and draped in usual sterile fashion. Time-out was performed and all present were in agreement. A 15 blade scalp was used to make a stab incision in the left upper quadrant and intra-abdominal insufflation was achieved using a Veress needle. After localizing the tissue incisions were made and a 5 millimeter trocar was placed into the umbilicus as well as 2 in the right upper quadrant. A 12 millimeter trocar was placed in the epigastrium. Gallbladder was grasped and elevated. The triangle of Calot was carefully dissected using blunt dissection and electrocautery until the triangle of Calot clearly identified. The cystic duct was clipped proximally and double clipped distally. The duct was then ligated proximally. The cystic artery was doubly clipped and ligated. The gallbladder was then removed from the liver bed using electrocautery. The gallbladder was removed from the abdomen using an Endo-Catch bag through the epigastric incision. The liver bed was inspected and no bleeding was seen. The abdomen was irrigated and suctioned. All ports removed. Skin was washed and dried. Incisions were closed with 4-0 Monocryl in a subcuticular interrupted fashion. Skin glue was applied. Patient tolerated the procedure well.
[2022-11-13] MEDS: HYDROcodone-acetaminophen 5-325 mg Tablet 1 TAB PO (12:20)
--- NOTE | 2022-11-13 14:25 | ANE.PACU2 ---
Inpatient post-anesthesia follow up: Airway intact: Yes Vital signs: Temperature 97 F Pulse Rate 72 Respiratory Rate 18 Blood Pressure 131/95 Pulse Oximetry 100 Oxygen Delivery Me thod Room Air Oxygen Flow Rate 6 Fraction of Inspir ed Oxygen Hydration adequate: Yes Nausea and vomiting: No Pain level: 1 Mental status: Baseline
== END 2022-11-13 13:07 | disposition home or self-care (01) ==
PROVIDERS: Anesthesiology; PCP Family Medicine; Visit Provider Surgery
PROC: 0FT44ZZ Resection of Gallbladder, Percutaneous Endoscopic Approach (ICD-10-PCS; CPT 47562; principal; 2022-11-13 08:20)
DX: K80.10 Calculus of gallbladder with chronic cholecystitis without obstruction (principal); E66.01 Morbid (severe) obesity due to excess calories; Z68.36 Body mass index [BMI] 36.0-36.9, adult; F17.200 Nicotine dependence, unspecified, uncomplicated
CPT/HCPCS: 47562; 81025; 84703; 88304; J0330; J0690; J1100; J1885; J2250; J2405; J2704; J2710; J3010; J3490; J7030

== ENCOUNTER 2023-01-25 08:56 | Outpatient (CLI) | payer BC, MEDICAID, SELFPAY ==
--- NOTE | 2023-01-25 09:12 | MM_ITS ---
WS: [id number] Bilateral screening 3D tomosynthesis digital mammogram, 01/25/2023 Clinical Data: SCREENING Comparison: None. Findings: The breast parenchymal pattern shows heterogeneous density. No spiculated masses or clustered calcifi cations are seen. There are no secondary signs of carcinoma. MM/[id number] Impression: 1. Negative bilateral mammogram no prior exam for review. 2. Recommend annual screening mammograms. BIRADS: 1-Negative FOLLOW UP: 1 Year Follow-up The CAD chemical checker was used.
== END 2023-01-25 08:57 | disposition home or self-care (01) ==
LOC: RAD 09:01
PROVIDERS: PCP Family Medicine; Visit Provider Family Medicine
DX: Z12.31 Encounter for screening mammogram for malignant neoplasm of breast (principal)
CPT/HCPCS: 77063; 77067